=== PATIENT | female | born 1970 | race Caucasian/White ===

== ENCOUNTER → 2020-02-19 | Day surgery (SDC) | payer OTHER ==
[2020-02-15 09:17] LABS: ANION GAP 12.2 mmol/L (8-16); BLOOD UREA NITROGEN 8 mg/dL (7-26); BUN/CREATININE RATIO 10 (6-25); CARBON DIOXIDE 22 mmol/L (22-29); CHLORIDE 109 mmol/L (98-107); CREATININE, SERUM 0.77 mg/dL (0.57-1.11); EST GLOMERULAR FILTRATION RATE > 60 ML/MIN (60-); GLUCOSE 165 mg/dL (74-118); POTASSIUM 4.2 mmol/L (3.5-5.1); SODIUM 139 mmol/L (136-145)
[~2020-02-19] MED LIST: BUPIVACAINE HCL 0.5% INJ 30 ML VIAL INJ ONE; CLINDAMYCIN PHOS 900MG/ 50ML 50 ML IV ONE; DEXAMETHASONE SOD PHOS INJ 4 MG/ML VIAL ONE; FENTANYL CITRATE/PF 100MCG/2 ML INJ ONE; GLIMEPIRIDE2 MG PO; KETOROLAC TROMETHAMINE 30 MG/ML VIAL ONE; LIDOCAINE HCL 2% LOCAL INJ 5 ML SDV VIAL INJ ONE; MIDAZOLAM HCL 2 MG/2 ML VIAL ONE; MORPHINE SULFATE INJ 10 MG/ML ONE; ONDANSETRON HCL INJ 2MG/ML 2ML 2 MG/ML VIAL ONE; PROPOFOL IV EMULSION 10 MG/ML 20 ML VIAL ONE; SEVOFLURANE INHAL SOLN 250 ML PEN BTL ONE
[2020-02-19 09:25] VITALS: BP 152/78
--- NOTE | 2020-02-19 12:45 | Operative Report ---
DATE OF PROCEDURE: 02/19/2020 SURGEON: Yoan Cuello DPM PREOPERATIVE DIAGNOSES: 1. Left hallux valgus. 2. Left metatarsal cuneiform exostosis. 3. Left medial dorsal cutaneous nerve neuralgia. PLANNED PROCEDURES: 1. Left Lapidus bunionectomy. 2. Left 2nd metatarsal cuneiform exostectomy. 3. Left medial dorsal cutaneous nerve neurolysis. SURGEON: Jay Hernandez DPM ([place]) AUTOMOTIVE SALESPERSON: Yoan Cuello DPM ANESTHESIA: General with a postoperative block consisting of 15 mL of 0.5% Marcaine plain mixed 1 mL of dexamethasone phosphate. HEMOSTASIS: Pneumatic thigh tourniquet set at 350 mmHg for a total time of 90 minutes. MATERIALS: One 4-0 cannulated by 34 mm cortical bone screw, one medial locking plate, four 16 mm combination locking and nonlocking screws by 2.7 mm. All [employer], 2-0 Vicryl, 3-0 Vicryl, 4-0 nylon. ESTIMATED BLOOD LOSS: Less than 10 mL. PATHOLOGY: None. PROCEDURE NOTE: The patient was seen in the preoperative waiting room. The correct procedure and site were identified. The patient was brought to the operating room and placed on the operating table in the supine position. General anesthesia was initiated. At this time, a well-padded pneumatic tourniquet was placed about the patient's left thigh. The left foot ankle was then scrubbed, prepped, and draped in the usual aseptic manner. The left foot and leg were exsanguinated with an Esmarch bandage and the pneumatic thigh tourniquet was inflated to 350 mmHg for a total time of approximately 90 minutes. Attention was directed to the dorsal medial aspect of the patient's left 1st metatarsophalangeal joint, where an incision was made. A lazy-S type incision was made over the 1st metatarsal phalangeal joint, extended proximally to the level of the metatarsal cuneiform joint. The incision was carried to subcutaneous tissues it from the underlying structures. All vital neurovascular structures were identified, retracted medially and lateral. All bleeders were cauterized or ligated as deemed necessary. At this time, attention was directed to the level of the metatarsal cuneiform joint, where a capsulotomy was performed. Utilizing #15 blade, the 1st metatarsal cuneiform was identified mediolaterally, proximally, and distally. Next, utilizing an osteotome. The plantar ligament was cut to allow for rotation of the 1st metatarsophalangeal joint. Next, the cartilage was denuded from the base of the 1st metatarsal as well as the distal aspect of the medial cuneiform. Next, utilizing a sagittal saw, an osteotomy was performed in the distal aspect of the medial cuneiform as well as fenestration with a 0.045 K-wire. Next, attention was directed to the 1st metatarsophalangeal joint, where through the same incision a full lateral release was performed consisting of the deep transverse metatarsal ligament, lateral collateral ligament, as well as the fibular sesamoidal ligament. The hallux was then put through range of motion and found to be functioning in a more proper anatomic alignment. Next, an inverted L-capsulotomy was performed to the level of the metatarsophalangeal joint to allow for good visualization of the 1st metatarsal head. At this point, utilizing techniques of manipulation and distraction the IM angle was reduced in the transverse as well as the sagittal plane and temporarily fixed with a guidewire. Utilizing intraoperative fluoroscopy, there was noted to be reduction of the sesamoid position, bony prominence, as well as the IM angle. Utilizing a techniques of AO fixation, one 4-0 cannulated by 34 mm cortical bone screw was placed across the metatarsal cuneiform joint and fixation site is stable and adequate compression was noted across the joint. Next, per manufacture protocol, one medial locking plate was placed over the metatarsal cuneiform joint. Four cortical bone screws were placed. Combination of locking and nonlocking all measuring 16 mm x 2.7 mm. The wound was then copiously irrigated with sterile saline. Attention was directed back to the 1st metatarsophalangeal joint with the use of a sagittal saw the medial eminence was resected as well as the dorsal eminence and the 1st metatarsophalangeal joint was debrided with a rotary bur to anatomic alignment. Capsule and deep tissue were reapproximated with 2-0 Vicryl, subcutaneous tissue with 3-0 Vicryl. The skin was closed using a running interlocking stitch of 4-0 Prolene. Attention was directed to the dorsal aspect of the 2nd metatarsal cuneiform joint, where a 3 cm linear incision made directly over a bony prominence. The incision was carried to subcutaneous tissue them from deep or underlying structures, it was noted that a ganglion cyst was identified and excised. The dissection was carried down to the level of the 2nd metatarsal cuneiform joint, where the exostosis was noted. Utilizing osteotome and mallet, the exostosis was reduced and passed off to the back table. Through careful dissection, the medial dorsal cutaneous nerve and its branches were identified and freed of all adhesions and steroid was injected over the nerve. The capsule and deep tissue were reapproximated with 3-0 Vicryl, and the skin was reapproximated utilizing simple interlocking technique with a 4-0 nylon. The incision site was then dressed with Adaptic, 4x4s, Kerlix, Webril, 4 x 30 posterior splint, followed by a 4-inch Miguel wrap, and a 6-inch Miguel wrap. The patient tolerated the procedure and anesthesia well. The patient was transferred to the postoperative recovery room with vital signs stable and vascular status intact. The patient was monitored there for a short period time before being sent home with the following written and oral instructions: 1. Keep the dressing clean, dry, intact. 2. The patient is to remain nonweightbearing to the left lower extremity to avoid any ambulation until being seen in office. 3. The patient was given the office number and instructed to contact us if any problems arise. ION Velasquez/FREDA /[id number]
== END | disposition home or self-care (01) ==
LOC: OR 05:02
PROVIDERS: ATTEND Podiatrist Foot & Ankle Surgery
DX: M20.12 Hallux valgus (acquired), left foot (principal); M77.52 Other enthesopathy of left foot and ankle; G57.92 Unspecified mononeuropathy of left lower limb; Z11.59 Encounter for screening for other viral diseases; Z88.0 Allergy status to penicillin; E11.9 Type 2 diabetes mellitus without complications; Z79.84 Long term (current) use of oral hypoglycemic drugs
CPT/HCPCS: 28116; 28296; 36415 ×2; 64704; 80048; 81025; 82948; 87635; 93005; J1100; J1885; J2001; J2405; J2704; J2250; J2270; J3010

== ENCOUNTER 2020-12-18 18:20 | Emergency (ER) | payer OTHER ==
[~2020-12-18] VITALS: Ht 157.5 cm; Wt 88.5 kg
[~2020-12-18 18:20] MED LIST changes: -BUPIVACAINE HCL 0.5% INJ 30 ML VIAL INJ ONE; -CLINDAMYCIN PHOS 900MG/ 50ML 50 ML IV ONE; -DEXAMETHASONE SOD PHOS INJ 4 MG/ML VIAL ONE; -FENTANYL CITRATE/PF 100MCG/2 ML INJ ONE; -KETOROLAC TROMETHAMINE 30 MG/ML VIAL ONE; -LIDOCAINE HCL 2% LOCAL INJ 5 ML SDV VIAL INJ ONE; -MIDAZOLAM HCL 2 MG/2 ML VIAL ONE; -MORPHINE SULFATE INJ 10 MG/ML ONE; -ONDANSETRON HCL INJ 2MG/ML 2ML 2 MG/ML VIAL ONE; -PROPOFOL IV EMULSION 10 MG/ML 20 ML VIAL ONE; -SEVOFLURANE INHAL SOLN 250 ML PEN BTL ONE
[2020-12-18] MEDS ORDERED: FLUORESCEIN SOD(OPTH) 1 MG STRP OP ONE (18:45)
[2020-12-18] MEDS ORDERED: OFLOXACIN5 ML OT (19:13)
[2020-12-18] MEDS ORDERED: PREDNISONE20 MG PO (19:14)
== END 2020-12-18 19:40 | disposition home or self-care (01) ==
LOC: ER 18:31
DX: G51.0 Bell's palsy (principal); E11.9 Type 2 diabetes mellitus without complications
CPT/HCPCS: 70450; 99283

== ENCOUNTER 2021-11-07 09:38 | Emergency (ER) | payer OTHER ==
[~2021-11-07] VITALS: Ht 157.5 cm; Wt 88.5 kg
[~2021-11-07 09:38] MED LIST changes: +OFLOXACIN5 ML OT; +PREDNISONE20 MG PO
== END 2021-11-07 10:37 | disposition home or self-care (01) ==
LOC: ER 09:48
DX: G51.0 Bell's palsy (principal); I10 Essential (primary) hypertension; E11.9 Type 2 diabetes mellitus without complications; E78.5 Hyperlipidemia, unspecified
CPT/HCPCS: 70450; 99283